=== PATIENT | female | born 1985 | race Caucasian/White ===

== ENCOUNTER 2017-11-20 21:08 | Emergency (ER) | payer OTHER ==
--- NOTE | 2017-11-20 21:25 | EDM.PDOC ---
ED HPI GENERAL MEDICAL PROBLEM - General Chief Complaint: Gastrointestinal Problem Stated Complaint: ABDOMINAL PAIN Time Seen by Provider: 11/20/17 21:24 Source of Information: Reports: Patient History Limitations: Reports: No Limitations - History of Present Illness INITIAL COMMENTS - FREE TEXT/NARRATIVE: 32-year-old female presents the ED with diffuse lower abdominal cramping pain and development of severe watery diarrhea which is been profuse with diarrhea stool almost every 10-15 minutes since 1700 hrs. today. She states she noted [employer] for dinner today. Started to feel ill for 5 hours later suggesting possible foodborne illness. Associated fever but some chills. Diarrhea stool is yellowish to almost clearish in color.. She has not been on any antibiotics in the last 6 weeks. She was due to start on Flagyl tomorrow for a diagnosis of bacterial vaginosis. She has mild nausea but has not vomited. Onset: Today Onset Date: 11/20/17 Onset Time: 17:00 Duration: Hour(s): Location: Reports: Abdomen (Severe diarrhea with lower abdominal cramping pain) Quality: Reports: Sharp, Stabbing (Abdominal cramps), Other Severity: Moderate Improves with: Reports: None Worsens with: Reports: None Context: Reports: Other (Acute onset of nausea vomiting and diarrhea.). Denies : Activity, Exercise, Lifting, Sick Contact, Trauma Associated Symptoms: Reports: Fever/Chills, Loss of Appetite (Chills but no fever), Malaise, Weakness. Denies: Headaches, Nausea/Vomiting, Rash, Seizure, Shortness of Breath, Syncope Treatments [employer]: Reports: Other (see below) - Related Data Allergies Allergy/AdvReac Type Severity Reaction Status Date / Time No Known Allergies Allergy Verified 11/20/17 21:17 Home Meds: Home Meds Ciprofloxacin HCl [Cipro] 500 mg PO BID #10 tablet 11/20/17 [Rx] Dicyclomine [Bentyl] 20 mg PO Q6H PRN #10 tablet 11/20/17 [Rx] Social & Family History - Tobacco Use Smoking Status *Q: Current Every Day Smoker Years of Tobacco use: 14 Second Hand Smoke Exposure: Yes - Alcohol Use Days Per Week of Alcohol Use: 0 - Recreational Drug Use Recreational Drug Use: No - Living Situation & Occupation Living situation: Reports: Occupation: Employed ED ROS GENERAL - Review of Systems Review Of Systems: See Below Constitutional: Reports: Chills, Weakness, Decreased Appetite HEENT: Reports: No Symptoms Respiratory: Reports: No Symptoms Cardiovascular: Reports: No Symptoms Endocrine: Reports: No Symptoms GI/Abdominal: Reports: Abdominal Pain, Diarrhea (Diffuse lower abdominal cramping pain), Decreased Appetite ( or profuse watery diarrhea almost every 10- 15 minutes and 1700 hrs.) : Reports: No Symptoms Musculoskeletal: Reports: No Symptoms Skin: Reports: No Symptoms Neurological: Reports: No Symptoms Psychiatric: Reports: No Symptoms Hematologic/Lymphatic: Reports: No Symptoms Immunologic: Reports: No Symptoms ED EXAM, GI/ABD - Physical Exam Exam: See Below Exam Limited By: No Limitations General Appearance: Alert, WD/WN, Moderate Distress (She had to get up twice during my interview just to have diarrhea stool. No blood in the stool it is light yellow gaytan in color and watery.) Eyes: Bilateral: Normal Appearance (No jaundice.) Throat/Mouth: Normal Inspection, Normal Lips, Normal Teeth, Normal Oropharynx Head: Atraumatic, Normocephalic Neck: Normal Inspection, Supple, Non-Tender, Full Range of Motion. No: Lymphadenopathy (L), Lymphadenopathy (R) Respiratory/Chest: No Respiratory Distress, Lungs Clear, Normal Breath Sounds, No Accessory Muscle Use Cardiovascular: Normal Peripheral Pulses, Regular Rate, Rhythm, No Edema, No Gallop, No Murmur GI/Abdominal Exam: Soft, Non-Tender, No Organomegaly, No Abnormal Bruit, Tender , Abnormal Bowel Sounds (Super hyperactive bowel sounds ). No: Guarding (Mild tenderness suprapubically. No rebound or), Rigid, Rebound Back Exam: Normal Inspection, Full Range of Motion. No: CVA Tenderness (L), CVA Tenderness (R) Extremities: Normal Inspection, Normal Range of Motion, Non-Tender, No Pedal Edema Neurological: Alert, Oriented, CN II-XII Intact, Normal Cognition, Normal Gait Psychiatric: Normal Affect, Normal Mood Skin Exam: Warm, Dry, Intact, Normal Color, No Rash Course - Vital Signs Last Recorded V/S: Last Vital Signs Temp 36.6 C 11/20/17 21:18 Pulse 93 11/20/17 21:18 Resp BP 109/71 11/20/17 21:18 Pulse Ox 100 11/20/17 21:18 - Orders/Labs/Meds Orders: Active Orders 24 hr Category Date Time Status Orthostatic Vital Signs [RC] ASDIRECTED Care 11/20/17 21:28 Active CULTURE STOOL + SHIGATOX [RM] Stat Lab 11/20/17 21:20 Ordered WBC, STOOL [OP] Stat Lab 11/20/17 21:20 Ordered Labs: Laboratory Tests 11/20/17 11/20/17 Range/Units 21:40 21:40 WBC 7.54 (3.98-10.04) K/mm3 RBC 5.09 (3.98-5.22) M/mm3 Hgb 14.9 (11.2-15.7) gm/L Hct 45.8 H (34.1-44.9) % MCV 90.0 (79.4-94.8) fl MCH 29.3 (25.6-32.2) pg MCHC 32.5 (32.2-35.5) g/dl RDW Std Deviation 45.6 (36.4-46.3) fL Plt Count 200 (182-369) K/mm3 MPV 11.4 (9.4-12.3) fl Neutrophils % (Manual) 77 H (40-60) % Band Neutrophils % 0 (0-10) % Lymphocytes % (Manual) 19 L (20-40) % Atypical Lymphs % 0 % Monocytes % (Manual) 4 (2-10) % Eosinophils % (Manual) 0 L (0.7-5.8) % Basophils % (Manual) 0 L (0.1-1.2) Platelet Estimate Adequate Plt Morphology Comment Normal RBC Morph Comment Normal Sodium 137 (136-145) mEq/L Potassium 3.8 (3.5-5.1) mEq/L Chloride 100 (98-107) mEq/L Carbon Dioxide 26 (21-32) mEq/L Anion Gap 14.8 (5-15) BUN 14 (7-18) mg/dL Creatinine 0.9 (0.55-1.02) mg/dL Est Cr Clr Drug Dosing 80.75 mL/min Estimated GFR (MDRD) > 60 (>60) mL/min BUN/Creatinine Ratio 15.6 (14-18) Glucose 90 (74-106) mg/dL Calcium 8.9 (8.5-10.1) mg/dL Total Bilirubin 0.3 (0.2-1.0) mg/dL AST 34 (15-37) U/L ALT 41 (14-59) U/L Alkaline Phosphatase 51 (46-116) U/L C-Reactive Protein < 0.2 (<1.0) mg/dL Total Protein 8.4 H (6.4-8.2) g/dl Albumin 4.8 (3.4-5.0) g/dl Globulin 3.6 gm/dL Albumin/Globulin Ratio 1.3 (1-2) Meds: Medications Discontinued Medications Generic Name Dose Route Start Last Admin Trade Name Perryq PRN Reason Stop Dose Admin Dicyclomine HCl 20 mg 11/20/17 21:39 11/20/17 21:52 Bentyl PO 11/20/17 21:40 20 mg ONETIME ONE Administration Hydromorphone HCl 0.5 mg 11/20/17 21:39 11/20/17 21:53 Dilaudid IVPUSH 11/20/17 21:40 0.5 mg ONETIME ONE Administration Dextrose/Sodium Chloride 1,000 mls @ 999 mls/hr 11/20/17 21:30 11/20/17 21:38 Dextrose 5%-Normal Saline IV 999 mls/hr ASDIRECTED DERRICK Administration Ondansetron HCl 4 mg 11/20/17 21:39 11/20/17 21:53 Zofran IVPUSH 11/20/17 21:40 4 mg ONETIME ONE Administration - Radiology Interpretation Free Text/Narrative:: 32-year-old female presents to the ED with acute onset of nausea which is mild but then development of diffuse lower pelvic Pain and profuse watery diarrhea with diarrhea stools almost every 10-15 minutes and 1700 hrs. tonight. It appears that she aorta [employer] today for dinner and there is strong suspicion of foodborne illness with Campylobacter or staph aureus enterotoxin. Stool be sent over for white cell count hand culture. In the meantime she will be given IV D5 normal saline at open. Given Bentyl 20 mg orally. Given 0.5 mg of Dilaudid IV to relieve some of her cramping and Zofran 4 mg IV for nausea relief. - Re-Assessments/Exams Free Text/Narrative Re-Assessment/Exam: 11/20/17 22:30 Labs are back. White count is normal at 7.54 with 77% neutrophils and no bands reported. Hemoglobin is 14.9 with hematocrit of 45.8 slightly elevated. White count is normal 200,000. The chemistry is completely normal with a bicarbonate of 26 and a potassium of 3.8. And a gap is also normal at 14.8 renal function is normal liver function is normal glucose is 90. CRP is less than 0.2. Total protein is elevated at 8.4 suggesting a some degree of hemoconcentration. Stool smear shows the occasional white blood cell. This is suggestive of possible bacterial enteritis. Patient is still having diarrhea almost every 10 minutes. She is almost completed liter of IV fluids she is able to drink Gatorade without issue and therefore will hopefully stay hydrated that way. Plan will be to discharge her on Cipro 500 mg by mouth twice daily for the next 5 days to clear up suspect foodborne bacterial infection. Also be staph aureus enterotoxin which will be self-limited. I will place her also on Bentyl 20 mg every 6 hours as needed to relieve a dull cramping pain and slow the direct real somewhat. She is advised to be clear fluid diet for the next 24 hours. She is to avoid all dairy products and no apple or grape juice Departure - Departure Time of Disposition: 22:31 Disposition: Home, Self-Care 01 Condition: Fair Clinical Impression: Foodborne gastroenteritis - Discharge Information Prescriptions: Ciprofloxacin HCl [Cipro] 500 mg PO BID #10 tablet Dicyclomine [Bentyl] 20 mg PO Q6H PRN #10 tablet PRN Reason: Abdominal cramps/diarrhea Instructions: Viral Gastroenteritis, Adult, [id number] Referrals: PCP,Not In Area [Primary Care Provider] - Forms: ED Department Discharge Additional Instructions: Evaluation the emergency room today in regards to the development of severe secretory diarrhea. This started about 4 hours after eating out at [employer] which suggest likely foodborne illness. This likely is due to a staph aureus toxin which is often found in the DIPs such as ranch dressing etc. Less likely due to poorly cooked chicken ties will contain an organism called Campylobacter jejuni which can cause food borne illness and severe diarrhea. The stool sample showed a few white blood cells suggesting bacterial infection. You're treated with a liter of intravenous fluids to rehydrate you. Your lab tests proved otherwise normal other than showing some mild volume depletion. Treatment at home is clear fluids such as Gatorade or Powerade ideally 5 or 6 ounces sipped per hour to maintain hydration. Usually toxin borne illness last 24-36 hours suggest use of antibiotic Cipro 500 mg twice daily for 5 days to eradicate any potential bacterial cause of the diarrhea. Use Bentyl 20 mg every 6 hours needed to relieve abdominal cramping pain and it will slow the diarrhea down some. Suggest no dairy products no apple juice or grape juice until stools are formed backup which will likely be 2 days. Resume diet as tolerated such as crackers toast broiled hard-boiled eggs, soup broth. Soup such as turkey noodle , chicken rice etc. - My Orders Last 24 Hours: My Active Orders 11/20/17 21:20 CULTURE STOOL + SHIGATOX [RM] Stat WBC, STOOL [OP] Stat 11/20/17 21:28 Orthostatic Vital Signs [RC] ASDIRECTED - Assessment/Plan Last 24 Hours: My Active Orders 11/20/17 21:20 CULTURE STOOL + SHIGATOX [RM] Stat WBC, STOOL [OP] Stat 11/20/17 21:28 Orthostatic Vital Signs [RC] ASDIRECTED
[2017-11-20] MEDS ORDERED: Dextrose 5%-0.9% NaCl 1,000 ML IV SCH (21:30)
[2017-11-20] MEDS ORDERED: Dicyclomine 10 MG Cap PO ONE (21:39)
[2017-11-20] MEDS ORDERED: Ondansetron 4 MG/2 ML SDV IVPUSH ONE (21:39)
[2017-11-20] MEDS ORDERED: HYDROmorphone 0.5 MG/0.5 ML SYRINGE IVPUSH ONE (21:39)
== END 2017-11-20 22:50 | disposition home or self-care (01) ==
LOC: JD.ED 21:08
DX: A05.9 Bacterial foodborne intoxication, unspecified (principal); F17.210 Nicotine dependence, cigarettes, uncomplicated
CPT/HCPCS: 36415; 80053; 85025; 86140; 87046; 87427; 89055; 96361; 96374; 96375; 99284; A9270; J1170; J2405; J7042